=== PATIENT | female | born 1960 | race Caucasian/White ===

== ENCOUNTER 2017-01-01 11:48 | Emergency (ER) | payer OTHER ==
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
[2017-01-01 12:35] VITALS: BP 155/82; PULSE 75; RESP 16; TEMP 97.9; O2SAT 96
== END 2017-01-01 12:35 | disposition home or self-care (01) ==
LOC: EDBD → EDUNIT#
DX: S40.021A Contusion of right upper arm, initial encounter (principal); S10.91XA Abrasion of unspecified part of neck, initial encounter; V49.50XA Passenger injured in collision with unspecified motor vehicles in traffic accident, initial encounter; Y92.410 Unspecified street and highway as the place of occurrence of the external cause; Y99.8 Other external cause status; Y93.89 Activity, other specified